=== PATIENT | male | born 1985 ===

== ENCOUNTER 2018-02-19 02:44 | Emergency (ER) | payer SELFPAY ==
[2018-02-19 02:49] VITALS: BP 120/76
[2018-02-19] MEDS ORDERED: NACL 0.9% 1000 ML 1,000 ML IV ONE (03:04)
[2018-02-19 03:46] LABS: Basophils % (Auto) 0.5 % (0.0-1.8); Eosinophils # (Auto) 0.2 K/mm3 (0.0-0.4); Eosinophils % (Auto) 2.8 % (0.0-4.3); Hematocrit 42.5 % (35.5-45.6); Hemoglobin 14.5 gm/dl (11.8-15.2); Lymphocytes # (Auto) 2.8 K/mm3 (1.2-5.4); Lymphocytes % (Auto) 40.6 % (13.4-35.0); Mean Corpuscular HGB Conc 34 % (32-34); Mean Corpuscular Hemoglobin 31 pg (28-32); Mean Corpuscular Volume 92 fl (84-94); Monocytes # (Auto) 0.8 K/mm3 (0.0-0.8); Monocytes % (Auto) 11.7 % (0.0-7.3); Platelet Count 195 K/mm3 (140-440); Red Blood Count 4.64 M/mm3 (3.65-5.03); Red Cell Distribution Width 13.7 % (13.2-15.2)
[2018-02-19 04:02] LABS: BUN/Creatinine Ratio 14; Blood Urea Nitrogen 11 mg/dL (9-20); Calcium 9.1 mg/dL (8.4-10.2)
[2018-02-19 04:03] LABS: Alanine Aminotransferase 15 units/L (7-56); Albumin 4.2 g/dL (3.9-5); Hemolysis Index 7; Lipase 36 units/L (13-60)
[2018-02-19 04:43] LABS: Bacteria,Urine 1+ /HPF (Negative); Bilirubin,Urine NEG (Negative); Blood,Urine MOD (Negative); Calcium Oxalate Crystals,Urine 2+; Color,Urine Yellow (Yellow); Mucus,Urine 3+ /HPF
--- NOTE | 2018-02-19 04:55 | Emergency Department Report ---
ED Abdominal Pain HPI - General Chief Complaint: Abdominal Pain Stated Complaint: ABD PAIN Time Seen by Provider: 02/19/18 04:54 Source: patient, family Mode of arrival: Ambulatory Limitations: No Limitations - History of Present Illness Initial Comments: This is a 32-year-old male that support and have an abdominal pain that started around his umbilical and now the digits down in his lower abdomen. And to his right flank. He said he has been having the pain for 6 weeks and now it is getting worse. Pain is 8 out of 10 sharp and cramping. No exacerbating or alleviating factors. Reports nausea without any vomiting. Denies any loading, constipation, urinary burning, frequency or urgency. Denies any diarrhea or any blood in his stool. He has a history of kidney stones in the past. No medication taken for pain. MD Complaint: abdominal pain, flank pain Onset/Timin -: week(s) Location: periumbilical, RLQ, R flank Radiation: none Migration to: no migration Severity: severe Severity scale (0 -10): 8 Quality: cramping, stabbing Consistency: constant Improves With: nothing Worsens With: nothing Context: other (unknown) Associated Symptoms: nausea. denies: vomiting, diarrhea, fever, chills, constipation, dysuria, hematemesis, hematochezia, melena, hematuria, anorexia, syncope Treatments Prior to Arrival: other (none) - Related Data Previous Rx's Medication Instructions Recorded Last Taken Type Acetaminophen/Codeine [Tylenol 1 tab PO Q6H PRN #14 tab 02/19/18 Unknown Rx /Codeine # 3 tab] Promethazine [Phenergan TAB] 25 mg PO Q6HR PRN #21 tab 02/19/18 Unknown Rx Allergies Allergy/AdvReac Type Severity Reaction Status Date / Time No Known Allergies Allergy Verified 02/19/18 05:00 ED Review of Systems ROS: Stated complaint: ABD PAIN Other details as noted in HPI Constitutional: denies: chills, fever ENT: denies: ear pain, throat pain, congestion Respiratory: denies: cough, shortness of breath, SOB with exertion, SOB at rest , stridor, wheezing Cardiovascular: denies: chest pain, palpitations, edema, syncope Gastrointestinal: abdominal pain, nausea, other (right flank pain). denies: vomiting, diarrhea, constipation, hematemesis, melena, hematochezia Genitourinary: denies: urgency, dysuria, frequency, hematuria, discharge, testicular pain, testicular mass Musculoskeletal: denies: back pain, joint swelling, arthralgia, myalgia Skin: denies: rash, lesions Neurological: denies: headache, weakness, numbness, paresthesias, confusion, abnormal gait, vertigo ED Past Medical Hx - Past Medical History Previous Medical History?: Yes Hx Kidney Stones: Yes - Surgical History Past Surgical History?: No - Family History Family history: hypertension - Social History Smoking Status: Current Every Day Smoker Substance Use Type: None - Medications Home Medications: Home Medications Medication Instructions Recorded Confirmed Last Taken Type Acetaminophen/Codeine [Tylenol 1 tab PO Q6H PRN #14 tab 02/19/18 Unknown Rx /Codeine # 3 tab] Promethazine [Phenergan TAB] 25 mg PO Q6HR PRN #21 tab 02/19/18 Unknown Rx ED Physical Exam - General Limitations: No Limitations General appearance: alert, in no apparent distress - Head Head exam: Present: atraumatic, normocephalic, normal inspection - Eye Eye exam: Present: normal appearance, PERRL, EOMI Pupils: Present: normal accommodation - ENT ENT exam: Present: normal exam, normal orophraynx, mucous membranes moist - Neck Neck exam: Present: normal inspection, full ROM. Absent: tenderness, lymphadenopathy - Respiratory Respiratory exam: Present: normal lung sounds bilaterally. Absent: respiratory distress, chest wall tenderness - Cardiovascular Cardiovascular Exam: Present: regular rate, normal rhythm, normal heart sounds. Absent: systolic murmur, diastolic murmur - GI/Abdominal GI/Abdominal exam: Present: soft, tenderness (right and left lower abdominal quadrant with mild tenderness.), normal bowel sounds. Absent: distended, guarding, rebound, rigid, organomegaly, mass, bruit, pulsatile mass, hernia - Rectal Rectal exam: Present: deferred - Extremities Exam Extremities exam: Present: normal inspection, full ROM, normal capillary refill , other (no clubbing, cyanosis or edema. +2 pulses all extremities and no neurovascular compromise). Absent: tenderness, pedal edema, joint swelling, calf tenderness - Back Exam Back exam: Present: normal inspection, full ROM, CVA tenderness (R), other ( ambulates without any difficulties). Absent: tenderness, CVA tenderness (L), muscle spasm, paraspinal tenderness, vertebral tenderness, rash noted - Expanded Back Exam Expanded Back exam: Absent: saddle anesthesia Back exam: Negative Straight Leg Raising: Left, Right - Neurological Exam Neurological exam: Present: alert, oriented X3, normal gait, reflexes normal. Absent: motor sensory deficit - Psychiatric Psychiatric exam: Present: normal affect, normal mood - Skin Skin exam: Present: warm, dry, intact, normal color. Absent: rash ED Course Vital Signs 02/19/18 02:42 Temperature 98.2 F Pulse Rate 72 Respiratory 18 Rate Blood Pressure 120/76 O2 Sat by Pulse 96 Oximetry - Reevaluation(s) Reevaluation #1: 02/19/18 05:32 Patient given Toradol 30 mg IM, Percocet 5/325 2 tablets by mouth for abdominal pain and Zofran 8 mg ODT for nausea. We will reevaluate. Will start to do oral challenge. Reevaluation #2: 02/19/18 06:05 Patient reports that his pain is better at present. He is resting quietly and able to tolerate oral liquids. ED Medical Decision Making - Lab Data Result diagrams: 02/19/18 03:26 02/19/18 03:26 Lab Results 02/19/18 02/19/18 02/19/18 Range/Units 03:26 03:26 04:03 WBC 7.0 (4.5-11.0) K/mm3 RBC 4.64 (3.65-5.03) M/mm3 Hgb 14.5 (11.8-15.2) gm/dl Hct 42.5 (35.5-45.6) % MCV 92 (84-94) fl MCH 31 (28-32) pg MCHC 34 (32-34) % RDW 13.7 (13.2-15.2) % Plt Count 195 (140-440) K/mm3 Lymph % (Auto) 40.6 H (13.4-35.0) % [place] % (Auto) 11.7 H (0.0-7.3) % Eos % (Auto) 2.8 (0.0-4.3) % Baso % (Auto) 0.5 (0.0-1.8) % Lymph # 2.8 (1.2-5.4) K/mm3 [place] # 0.8 (0.0-0.8) K/mm3 Eos # 0.2 (0.0-0.4) K/mm3 Baso # 0.0 (0.0-0.1) K/mm3 Seg Neutrophils % 44.4 (40.0-70.0) % Seg Neutrophils # 3.1 (1.8-7.7) K/mm3 Sodium 141 (137-145) mmol/L Potassium 3.8 (3.6-5.0) mmol/L Chloride 103.4 (98-107) mmol/L Carbon Dioxide 28 (22-30) mmol/L Anion Gap 13 mmol/L BUN 11 (9-20) mg/dL Creatinine 0.8 (0.8-1.5) mg/dL Estimated GFR > 60 ml/min BUN/Creatinine Ratio 14 % Glucose 101 H (75-100) mg/dL Calcium 9.1 (8.4-10.2) mg/dL Total Bilirubin 0.70 (0.1-1.2) mg/dL AST 20 (5-40) units/L ALT 15 (7-56) units/L Alkaline Phosphatase 64 (35-129) units/L Total Protein 7.1 (6.3-8.2) g/dL Albumin 4.2 (3.9-5) g/dL Albumin/Globulin Ratio 1.4 % Lipase 36 (13-60) units/L Urine Color Yellow (Yellow) Urine Turbidity Clear (Clear) Urine pH 5.0 (5.0-7.0) Ur Specific [place] 1.028 (1.003-1.030) Urine Protein 30 mg/dl (Negative) mg/dL Urine Glucose (UA) Neg (Negative) mg/dL Urine Ketones Neg (Negative) mg/dL Urine Blood Mod (Negative) Urine Nitrite Neg (Negative) Urine Bilirubin Neg (Negative) Urine Urobilinogen 2.0 (<2.0) mg/dL Ur Leukocyte Esterase Neg (Negative) Urine WBC (Auto) 3.0 (0.0-6.0) /HPF Urine RBC (Auto) 91.0 (0.0-6.0) /HPF Urine Bacteria (Auto) 1+ (Negative) /HPF Calcium Oxalate Crystal 2+ Urine Mucus 3+ /HPF Urine culture sent - Radiology Data Radiology results: report reviewed CT scan of the abdomen and pelvis without contrast dictated by radiologist and report reviewed by myself. Please see report below. Patient: ALLYSSA HANSEN JR MR#: [id number] : 1985 Acct:[id number] Age/Sex: 32 / M ADM Date: 02/19/18 Loc: ED Attending Dr: Ordering Physician: BALDO ODVE Date of Service: 02/19/18 Procedure(s): CT abdomen pelvis wo con Accession Number(s): [id number] cc: BALDO DOVE FINAL REPORT PROCEDURE: CT ABDOMEN PELVIS WO CON TECHNIQUE: Computerized axial tomography of the abdomen and pelvis was performed without intravenous contrast. This study is performed without intravascular contrast material and its sensitivity for abdominal and pelvic pathology, including neoplasms, inflammation, abscess, free fluid, thrombosis, arterial dissection and infarction, is reduced compared with a contrast enhanced study. HISTORY: abdominal pain,CVA tenderness, COMPARISON: No prior studies are available for comparison. FINDINGS: Visualized lower thorax: No significant abnormality. Liver: Normal size and attenuation. Spleen: Normal size and attenuation. Gallbladder and biliary system: Normal. Pancreas: Normal. Adrenals: Normal. Kidneys: There is moderate right hydronephrosis and hydroureter down to the urinary bladder. In the urinary bladder there is a large calculus this measures 9 millimeters. The left collecting system is normal. No renal calculi are identified. No renal masses.. GI tract: The stomach is normal. The small bowel has a normal caliber. No obstruction, ileus or enteritis. The cecum, appendix and colon are normal.. Lymph nodes and mesentery: Normal. Vasculature: Normal. Bladder: Normal. Reproductive organs: Normal. Peritoneum: No free fluid. Musculoskeletal structures: No significant abnormality. Other: None. IMPRESSION: There is moderate right hydronephrosis and hydroureter down to the urinary bladder where there is a 9 millimeter calculus. No evidence of intestinal obstruction.. Transcribed By: [facility] Dictated By: LUIGI PATTERSON MD Electronically Authenticated By: LUIGI PATTERSON MD Signed Date/Time: 02/19/18607 DD/ 7 TD/TT: 02/19/18607 - Medical Decision Making This is a 32-year-old male here reports that he is having in right lower quadrant abdominal pain and right flank pain. He said he has had a history of kidney stone in the past and he feels like he is having a kidney stone. He is not having any nausea vomiting or any urinary symptoms. Patient is here to be evaluated. I Discussed this case with Dr. Skaggs after CT scan results came back. Was examined by myself and he has normal leg abdominal exam and positive right CVA tenderness otherwise examination is normal. Patient was given Percocet 5/325 2 tablets by mouth in emergency room, Toradol 30 mg IM for pain which relieved this pain and Zofran 8 mg ODT for nausea which relieved his nausea. Patient had laboratory studies done to include CBC which was stable, BMP which was stable and urinalysis stable except he had 1+ bacteria and 2+ calcium oxalate crystal and moderate blood. Urine culture sent. He had CT scan of the abdomen and positive this without contrast which dictated by radiologist and reports reviewed by myself and is is showing that he has moderate right hydronephrosis and hydroureter down to the bladder where there is 9 mm calculus. The left kidney is normal. He has normal appendix. No evidence of intestinal obstruction. Discussed laboratory findings and CT scan findings the patient and told him that he needs to follow up with her urologist I told him that I will refer him to [facility] for he should call them this morning to schedule an appointment to see them tomorrow and also to call [facility] to set up an appointment. He voiced understanding. A/P 1: Right abdominal and flank pain.-Better with Percocet and Toradol. Will be discharged home on Tylenol 3 2: Nausea alone-better with Zofran and will be discharged home on an Phenergan 3: Hydronephrosis and hydroureter-referred to urologist 4: Bladder calculus-CT scan shows 9 mm stone in bladder. We will refer to urologist and patient encouraged to drink at least 2 L of water daily to help to flush stone out of his bladder. Educated on kidney stones, other diagnosis, medication, treatment plan, hydration and he voiced understanding. Patient discharged home in stable condition, vital signs are stable and he is afebrile. Pain is controlled. Discharged home to follow-up with [facility] and [facility] in one to 2 days and he voiced understanding. I also told him if his pain returned and he is having nausea vomiting in and fever and/or chills to return to the emergency room immediately. Discharged home with prescription for Tylenol 3 and Phenergan I - Differential Diagnosis appendicitis, colitis, bowel obstruction, UTI, kidney stones, enteritis Critical care attestation.: If time is entered above; I have spent that time in minutes in the direct care of this critically ill patient, excluding procedure time. ED Disposition Clinical Impression: Calculus, bladder, Hydronephrosis, right, Hydroureter on right, Renal colic on right side, Nausea alone Disposition: DC-01 TO HOME OR SELFCARE Is pt being admited?: No Does the pt Need Aspirin: No Condition: Stable Instructions: Hydronephrosis (ED), Renal Colic (ED), Kidney Stones (ED), Flank Pain (ED), Acute Nausea and Vomiting (ED) Additional Instructions: You have a 9 mm stone in your bladder and not in your kidney. The stone is moving from the kidney down year urethra into your bladder. You Will need to follow up for your primary care and also [facility] as discussed in 1-2 days He is straining at least 2-3 L of water daily to help to flash stone out a few bladder. Take Tylenol No. 3 as ordered to help with pain but he should not be having any pain at the stone is in your bladder. If you take Tylenol No. 3, please do not drive or operate heavy machinery as this medication causes drowsiness. Take Phenergan for nausea but please do not drive or operate heavy machinery as this medication causes drowsiness If symptoms return and worsens, return to the emergency room immediately. Prescriptions: Acetaminophen/Codeine [Tylenol /Codeine # 3 tab] 1 tab PO Q6H PRN #14 tab PRN Reason: moderate to severe pain Promethazine [Phenergan TAB] 25 mg PO Q6HR PRN #21 tab PRN Reason: Nausea Referrals: PRIMARY CARE, [Primary Care Provider] - 02/20/18 [facility] [Outside] - 02/20/18 [facility] [Provider Group] - 02/20/18 Forms: Work/School Release Form(ED)
[2018-02-19] MEDS ORDERED: TORADOL ONE (05:22)
[2018-02-19] MEDS ORDERED: ZOFRAN ODT ONE (05:22)
[2018-02-19] MEDS ORDERED: PERCOCET 5/325 ONE (05:22)
[2018-02-19] MEDS ORDERED: PERCOCET 5/325 PO ONE (05:23)
[2018-02-19] MEDS ORDERED: TORADOL IM ONE (05:23)
[2018-02-19] MEDS ORDERED: ZOFRAN ODT PO ONE (05:23)
--- NOTE | 2018-02-19 06:12 | Cat Scan Report ---
FINAL REPORT PROCEDURE: CT ABDOMEN PELVIS WO CON TECHNIQUE: Computerized axial tomography of the abdomen and pelvis was performed without intravenous contrast. This study is performed without intravascular contrast material and its sensitivity for abdominal and pelvic pathology, including neoplasms, inflammation, abscess, free fluid, thrombosis, arterial dissection and infarction, is reduced compared with a contrast enhanced study. HISTORY: abdominal pain,CVA tenderness, COMPARISON: No prior studies are available for comparison. FINDINGS: Visualized lower thorax: No significant abnormality. Liver: Normal size and attenuation. Spleen: Normal size and attenuation. Gallbladder and biliary system: Normal. Pancreas: Normal. Adrenals: Normal. Kidneys: There is moderate right hydronephrosis and hydroureter down to the urinary bladder. In the urinary bladder there is a large calculus this measures 9 millimeters. The left collecting system is normal. No renal calculi are identified. No renal masses.. GI tract: The stomach is normal. The small bowel has a normal caliber. No obstruction, ileus or enteritis. The cecum, appendix and colon are normal.. Lymph nodes and mesentery: Normal. Vasculature: Normal. Bladder: Normal. Reproductive organs: Normal. Peritoneum: No free fluid. Musculoskeletal structures: No significant abnormality. Other: None. IMPRESSION: There is moderate right hydronephrosis and hydroureter down to the urinary bladder where there is a 9 millimeter calculus. No evidence of intestinal obstruction..
== END 2018-02-19 07:00 | disposition home or self-care (01) ==
LOC: ED 02:44
DX: N13.30 Unspecified hydronephrosis (principal); F17.200 Nicotine dependence, unspecified, uncomplicated
CPT/HCPCS: 36415; 74176; 80053; 81001; 83690; 85025; 87086; 96372; 99284; J1885; Q0162